=== PATIENT | male | born 1965 | race Caucasian/White ===

== ENCOUNTER 2017-08-18 15:06 | Emergency (ER) | payer OTHER ==
--- NOTE | 2017-08-18 15:55 | EDM.PDOC ---
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 He is tender status is to be determined Review of systems: As per history of present illness and below otherwise all systems reviewed and negative. Past medical history: As per history of present illness and as reviewed below otherwise noncontributory. Surgical history: As per history of present illness and as reviewed below otherwise noncontributory. Social history: No reported history of drug or alcohol abuse. Family history: As per history of present illness and as reviewed below otherwise noncontributory. Physical exam: HEENT: Atraumatic, normocephalic, pupils reactive, negative for conjunctival pallor or scleral icterus, mucous membranes moist, throat clear, neck supple, nontender, trachea midline. Lungs: Clear to auscultation, breath sounds equal bilaterally, chest nontender. Heart: S1S2, regular, negative for clicks, rubs, or JVD. Abdomen: Soft, nondistended, nontender. Negative for masses or hepatosplenomegaly. Negative for costovertebral tenderness. Pelvis: Stable nontender. Genitourinary: Deferred. Rectal: Deferred. Extremities: Patient has a wound to the base of the volar aspect of the third digit of his right hand is good hemostasis CMS neurovascular exams unremarkable. Neuro: Awake, alert, oriented. Cranial nerves II through XII unremarkable. Cerebellum unremarkable. Motor and sensory unremarkable throughout. Exam nonfocal. Diagnostics: X-ray right hand Therapeutics: Ancef 1 g IM and was soaked and irrigated with copious amounts of 0.9 normal saline bulky universal hand dressing Impression: #1 high-pressure wound right hand Definitive disposition and diagnosis as appropriate pending reevaluation and review of above. right hand middle finger Pain Score (Numeric/FACES): 20 - Related Data Allergies Allergy/AdvReac Type Severity Reaction Status Date / Time No Known Allergies Allergy Verified 08/18/17 15:08 Home Meds: Home Meds . [Unable to Verify Home Med List] 08/18/17 [History] Past Medical History - Past Health History Medical/Surgical History: Denies Medical/Surgical History Cardiovascular History: Reports: Hypertension Hematologic History: Reports: None Immunologic History: Reports: None Oncologic (Cancer) History: Reports: None - Infectious Disease History Infectious Disease History: Reports: None Social & Family History - Family History Family Medical History: Noncontributory - Tobacco Use Smoking Status *Q: Former Smoker Used Tobacco, but Quit: Yes Month/Year Tobacco Last Used: unknown - Caffeine Use Caffeine Use: Reports: Coffee - Recreational Drug Use Recreational Drug Use: No Review of Systems - Review of Systems Review Of Systems: ROS reveals no pertinent complaints other than HPI. ED EXAM, GENERAL - Physical Exam Exam: See Below (See dictation) Course - Vital Signs Last Recorded V/S: Last Vital Signs Temp 36.6 C 08/18/17 15:18 Pulse 98 08/18/17 15:18 Resp 18 08/18/17 15:18 BP 178/102 H 08/18/17 15:18 Pulse Ox 98 08/18/17 15:18 - Orders/Labs/Meds Orders: Active Orders 24 hr Category Date Time Status Hand 2V Rt [CR] Stat Exams 08/18/17 15:49 Ordered Departure - Departure Time of Disposition: 15:53 Disposition: Home, Self-Care 01 Condition: Good Clinical Impression: Hand injury - Discharge Information Additional Instructions: The following information is given to patients seen in the emergency department who are being discharged to home. This information is to outline your options for follow-up care. We provide all patients seen in our emergency department with a follow-up referral. The need for follow-up, as well as the timing and circumstances, are variable depending upon the specifics of your emergency department visit. If you don't have a primary care physician on staff, we will provide you with a referral. We always advise you to contact your personal physician following an emergency department visit to inform them of the circumstance of the visit and for follow-up with them and/or the need for any referrals to a consulting specialist. The emergency department will also refer you to a specialist when appropriate. This referral assures that you have the opportunity for followup care with a specialist. All of these measure are taken in an effort to provide you with optimal care, which includes your followup. Under all circumstances we always encourage you to contact your private physician who remains a resource for coordinating your care. When calling for followup care, please make the office aware that this follow-up is from your recent emergency room visit. If for any reason you are refused follow-up, please contact the [facility] emergency department at and asked to speak to the emergency department charge nurse. [facility] [address] [place] [id number] Keflex as prescribed follow-up clinic above return as needed as discussed [] - My Orders Last 24 Hours: My Active Orders 08/18/17 15:49 Hand 2V Rt [CR] Stat - Assessment/Plan Last 24 Hours: My Active Orders 08/18/17 15:49 Hand 2V Rt [CR] Stat
[2017-08-18] MEDS ORDERED: ceFAZolin 1 GM Vial IM ONE (15:57)
[2017-08-18] MEDS ORDERED: Ketorolac 60 MG/2 ML SDV IM ONE (15:57)
[2017-08-18] MEDS ORDERED: Acetaminophen/HYDROcodone 325-10 MG Tab PO ONE (15:57)
[2017-08-18] MEDS ORDERED: Diphtheria,Pertussis(Acell),Tetanus Vaccine 0.5 ML Syringe IM ONE (15:58)
[2017-08-18] MEDS ORDERED: Water For Injection, Sterile 20 ML SDV INJECT ONE (15:58)
--- NOTE | 2017-08-18 16:14 | CR ---
EXAMINATION: Right hand HISTORY: Pain COMPARISON: None TECHNIQUE: 3 views FINDINGS: There is no acute osseous abnormality, dislocation, or fracture. Bone mineralization appear s normal. Moderate joint space narrowing noted at the third MCP joint. Within the surrounding soft ti ssues of the distal third metacarpal extending into the third phalanx is subcutaneous air noted. 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 IMPRESSION: 1. Subcutaneous air near the third MCP joint and within the third digit consistent with high-pressure injury. 2. No acute osseous abnormality. 3. Early osteophytic changes with joint space narrowing within the third MCP joint.
== END 2017-08-18 16:45 | disposition home or self-care (01) ==
LOC: MW.ED 15:06
DX: S61.209A Unspecified open wound of unspecified finger without damage to nail, initial encounter (principal); T70.4XXA Effects of high-pressure fluids, initial encounter; Z23 Encounter for immunization; I10 Essential (primary) hypertension; Z87.891 Personal history of nicotine dependence
CPT/HCPCS: 73120; 90471; 90715; 96372; 99283; A9270; J0690; J1885